=== PATIENT | male | born 1945 | race Caucasian/White ===

== ENCOUNTER 2024-10-14 09:08 | Day surgery (SDC) | payer MEDICARE, MEDICAID ==
[2024-10-10 12:07] LABS: BASOPHILS # (AUTO) 0.1 X10'3 (0-0.2); BASOPHILS % (AUTO) 0.8 % (0-1); EOSINOPHILS # (AUTO) 0.4 X10'3 (0-0.9); EOSINOPHILS % (AUTO) 4.8 % (0-6); HEMATOCRIT 49.4 % (42.0-52.0); HEMOGLOBIN 16.7 g/dl (14.0-17.9); LYMPHOCYTES # (AUTO) 1.5 X10'3 (1.1-4.8); LYMPHOCYTES % (AUTO) 19.4 % (21-51); MEAN CORPUSCULAR HEMOGLOBIN 31.2 PG (27.0-31.0); MEAN CORPUSCULAR HGB CONC 33.9 g/dL (33.0-36.5); MEAN CORPUSCULAR VOLUME 92.1 FL (78-98); MEAN PLATELET VOLUME 8.9 FL (7.4-10.4); MONOCYTES # (AUTO) 0.4 X10'3 (0-0.9); MONOCYTES % (AUTO) 5.7 % (2-12); NEUTROPHILS # (AUTO) 5.3 X10'3 (1.8-7.7); NEUTROPHILS % (AUTO) 69.3 % (42-75); PLATELET COUNT 214 X10'3 (140-440); RED BLOOD COUNT 5.36 X10'6 (4.70-6.10); RED CELL DISTRIBUTION WIDTH 14.1 % (11.5-14.5); WHITE BLOOD COUNT 7.6 X10'3 (4.5-11.0)
[2024-10-10 12:18] LABS: APTT 29 SECONDS (22-32); INR 1.1 INR; PROTHROMBIN TIME 11.9 SECONDS (9.0-12.0)
[2024-10-10 12:23] LABS: ALBUMIN 3.8 G/DL (3.4-5.0); ANION GAP 4 (8-16); BLOOD UREA NITROGEN 18 MG/DL (7-18); CHLORIDE 105 MMOL/L (99-107); CHOL/HDL RATIO 3.2 (0.00-4.99); CHOLESTEROL 171 MG/DL (0-200); GLUCOSE 106 MG/DL (70-104); HDL CHOLESTEROL 54 MG/DL (35-60); LDL CHOLESTEROL 89 MG/DL (50-100); POTASSIUM 4.5 MMOL/L (3.5-5.1); SODIUM 142 MMOL/L (135-145); TOTAL CARBON DIOXIDE 32.9 MMOL/L (24-32); TRIGLYCERIDES 162 MG/DL (20-135); eGFR 59 ML/MIN
[~2024-10-14] VITALS: Ht 172.7 cm; Wt 69.4 kg
[2024-10-14] VITALS (10 sets, daily range): BP systolic 114–158; BP diastolic 65–88; PULSE 60–71; RESP 12–17; TEMP 97.8; O2SAT 94–98
[2024-10-14] MEDS ORDERED: LISI10TA27 PO (09:28)
[2024-10-14] MEDS ORDERED: METO25TA6 PO (09:28)
[2024-10-14] MEDS ORDERED: APIX5TAB3 PO (09:28)
[2024-10-14] MEDS ORDERED: PRAV40TA3 PO (09:28)
[2024-10-14] MEDS ORDERED: CHOL500044 PO (09:28)
[2024-10-14] MEDS: MIDAZolam 1mg/ml 10ml vial IV ONE (13:31)
[2024-10-14] MEDS: fentaNYL/PF 50MCG/1 ML 2ML syringe IV ONE (13:31)
[2024-10-14] MEDS: normal saline 1000ml 1,000 ML IV SCH (13:32)
== END 2024-10-14 13:55 | disposition home or self-care (01) ==
LOC: SSTAY O 09:08
PROVIDERS: ATTEND Student in an Organized Health Care Education/Training Program
DX: I48.91 Unspecified atrial fibrillation (principal); I48.92 Unspecified atrial flutter; I25.10 Atherosclerotic heart disease of native coronary artery without angina pectoris; J44.9 Chronic obstructive pulmonary disease, unspecified; I44.1 Atrioventricular block, second degree; Z79.899 Other long term (current) drug therapy; Z98.890 Other specified postprocedural states
CPT/HCPCS: 36415; 80048; 80061; 85025; 85610; 85730; 92960; 93005; J2250; J3010; J7030; Z7610